=== PATIENT | female | born 1975 | race Caucasian/White ===

== ENCOUNTER 2018-07-22 19:09 | Emergency (ER) | payer OTHER ==
[~2018-07-22] VITALS: Ht 154.9 cm; Wt 64.3 kg
[2018-07-22 19:15] VITALS: BP 109/39
--- NOTE | 2018-07-22 20:21 | NUR ---
TASK RN: AMBULATING WELL UPON DEPARTURE.
== END 2018-07-22 20:22 | disposition home or self-care (01) ==
LOC: ED 20:17
DX: R60.0 Localized edema (principal)
CPT/HCPCS: 99284

== ENCOUNTER → 2020-08-31 | Outpatient (CLI) | payer OTHER ==
[~2020-08-31] MED LIST: ALBU8.5H8 INH; ASPI81TA45 PO; LACT1CAP35 PO; MONT10TA6 PO; MULT-449 PO; TRIA15CR53 TP; ZINC50TA44 PO
[2020-08-31 08:26] LABS: BASOPHILS % (AUTO) 1 % (0-1); EOSINOPHILS % (AUTO) 1 % (1-7); LYMPHOCYTES % (AUTO) 17 % (22-44); MEAN CORPUSCULAR HEMOGLOBIN 31.2 pg (27.0-34.8); MEAN CORPUSCULAR HGB CONC 34.3 g/dL (32.4-35.8); MEAN PLATELET VOLUME 8.5 fL (7.4-10.4); MONOCYTES % (AUTO) 9 % (2-9); NEUTROPHILS % (AUTO) 72 % (42-75); PLATELET COUNT 298 x10^3/uL (130-400); RED BLOOD COUNT 5.02 x10^6/uL (3.82-5.3); RED CELL DISTRIBUTION WIDTH 13.3 % (9.6-15.2)
[2020-08-31 08:38] LABS: ALANINE AMINOTRANSFERASE 29 U/L (12-78); ALBUMIN 3.8 g/dL (3.4-5.0); ANION GAP 4 mmol/L (5-15); CALCIUM 9.3 mg/dL (8.5-10.1); CHLORIDE 102 mmol/L (98-107); CREATININE 0.76 mg/dL (0.55-1.02)
[2020-08-31 08:41] LABS: ALKALINE PHOSPHATASE 66 U/L (45-117); BILIRUBIN,TOTAL 0.4 mg/dL (0.2-1.0); TOTAL PROTEIN 7.9 g/dL (6.4-8.2)
== END | disposition home or self-care (01) ==
LOC: STAR 07:17
PROVIDERS: ATTEND Surgery
DX: Z01.818 Encounter for other preprocedural examination (principal); Z20.822 Contact with and (suspected) exposure to COVID-19
CPT/HCPCS: 36415; 71046; 80053; 85025; 93005; U0003; U0005

== ENCOUNTER 2020-09-07 13:30 | Day surgery (SDC) | payer OTHER ==
[~2020-09-07] VITALS: Ht 154.9 cm; Wt 72.5 kg
[~2020-09-07 13:30] MED LIST changes: +VISIPAQUE 270 MG/ML, 150ML BOTTLE ONE
[2020-09-07 13:52] VITALS: BP 122/77
[2020-09-07] MEDS ORDERED: LACTATED RINGERS 1,000 ML IV SCH (14:00)
[2020-09-07] MEDS ORDERED: CHLORHEXIDINE 15 ML UDC PO ONE (14:00)
[2020-09-07] MEDS ORDERED: CHLORHEXIDINE 15 ML UDC ONE (14:02)
[2020-09-07] MEDS ORDERED: LIDOCAINE 1%, 10ML ONE (14:35)
[2020-09-07] MEDS ORDERED: MIDAZOLAM 1 MG/ML, 2ML ONE (14:45)
[2020-09-07] MEDS ORDERED: PROPOFOL 10 MG/ML, 20ML ONE (14:52)
[2020-09-07] MEDS ORDERED: ONDANSETRON 2MG/ML, 2ML ONE ×3 (14:52→19:30)
[2020-09-07] MEDS ORDERED: FENTANYL PF 250 MCG/5ML ONE (14:52)
[2020-09-07] MEDS ORDERED: DEXAMETHASONE 4 MG/ML, 5ML ONE (14:52)
[2020-09-07] MEDS ORDERED: CEFAZOLIN 1,000 MG ONE (14:52)
[2020-09-07] MEDS ORDERED: ONDANSETRON 2MG/ML, 2ML IVPush PRN (15:00)
[2020-09-07] MEDS ORDERED: OXYcodone 5 MG/5 ML ORAL.SOL UDC PO PRN (15:00)
[2020-09-07] MEDS ORDERED: MEPERIDINE/PF 25MG/0.5ML IVPush PRN (15:00)
[2020-09-07] MEDS ORDERED: PROMETHAZINE 25 MG/ML, 1ML IVPush PRN (15:00)
[2020-09-07] MEDS ORDERED: HYDROmorphone 1 MG/ML, 1ML INJ IVPush PRN (15:00)
[2020-09-07] MEDS ORDERED: ACETAMINOPHEN 325 MG TABLET PO PRN (15:00)
[2020-09-07] MEDS ORDERED: EPHEDRINE 50 MG/ML, 1ML ONE (15:31)
[2020-09-07] MEDS ORDERED: PROTAMINE SULFATE 10 MG/ML, 25ML ONE (15:52)
[2020-09-07] MEDS ORDERED: HEPARIN 1,000 UNITS/ML, 10ML ONE (15:52)
[2020-09-07] MEDS ORDERED: PROMETHAZINE 25 MG/ML, 1ML ONE (16:41)
[2020-09-07] MEDS ORDERED: APIXABAN 5 MG TABLET ONE (17:08)
[2020-09-07] MEDS ORDERED: FENTANYL PF 100 MCG/2ML ONE (17:30)
[2020-09-07] MEDS: FENTANYL PF 100 MCG/2ML IV PRN ×2 (17:38→17:44)
[2020-09-07] MEDS ORDERED: OXYcodone 5 MG/5 ML ORAL.SOL UDC ONE (17:45)
[2020-09-07] MEDS ORDERED: HYDROmorphone 1 MG/ML, 1ML INJ ONE (19:06)
[2020-09-07] MEDS ORDERED: ACETAMINOPHEN 650 MG/20.3 ML UDC ONE (19:13)
[2020-09-07] MEDS ORDERED: APIXABAN 5 MG TABLET PO SCH (21:00)
[2020-09-14] MEDS ORDERED: APIXABAN 5 MG TABLET PO SCH (21:00)
== END 2020-09-07 21:40 | disposition home or self-care (01) ==
LOC: OUT 13:30
PROVIDERS: ATTEND Surgery
DX: I87.002 Postthrombotic syndrome without complications of left lower extremity (principal); D72.0 Genetic anomalies of leukocytes; I82.512 Chronic embolism and thrombosis of left femoral vein; J45.909 Unspecified asthma, uncomplicated; E66.3 Overweight; Z68.30 Body mass index [BMI] 30.0-30.9, adult; Z79.01 Long term (current) use of anticoagulants; Z79.02 Long term (current) use of antithrombotics/antiplatelets; Z79.82 Long term (current) use of aspirin; Z79.899 Other long term (current) drug therapy; Z86.711 Personal history of pulmonary embolism
CPT/HCPCS: 36415; 37238; 37252; 75820; 86850; 86900; C1725; C1751; C1753; C1769; C1876; C1894; J0690; J1100; J1170; J2250; J2405; J2550; J2704; J3010; J7120; Q9966; J1644; J2720